=== PATIENT | male | born 1965 | race Caucasian/White ===

== ENCOUNTER → 2020-02-23 13:52 | Outpatient (REF) | payer OTHER, SELFPAY | LOC: HO.SL 13:52 | PROVIDERS: PCP Internal Medicine; Visit Provider Internal Medicine Pulmonary Disease | DX: G47.33 Obstructive sleep apnea (adult) (pediatric) (principal) | CPT/HCPCS: 95806 ==

== ENCOUNTER 2020-11-09 09:41 | Outpatient (REF) | payer OTHER, SELFPAY ==
[2020-11-09 10:47] LABS: Anion Gap 10 (12-20); Blood Urea Nitrogen 13 mg/dL (9-16); Calcium 9.2 mg/dL (8.4-10.2); Carbon Dioxide 29 mmol/L (22-29); Chloride 106 mmol/L (96-108); Estimated Glomerular Filt Rate > 60; Glucose Random 121 mg/dL (60-115); Potassium 4.3 mmol/L (3.3-5.1); Sodium 141 mmol/L (135-145)
== END 2020-11-09 09:42 | disposition home or self-care (01) ==
LOC: HO.10HDL 09:41
PROVIDERS: Visit Provider Internal Medicine
DX: I10 Essential (primary) hypertension (principal)
CPT/HCPCS: 36415; 80048

== ENCOUNTER 2021-02-21 09:57 | Outpatient (REF) | payer OTHER, SELFPAY ==
[2021-02-21 13:45] LABS: Anion Gap 12 (12-20); Blood Urea Nitrogen 13 mg/dL (9-16); Carbon Dioxide 29 mmol/L (22-29); Chloride 103 mmol/L (96-108); Estimated Glomerular Filt Rate > 60; Glucose Fasting 111 mg/dL (60-99); Potassium 4.2 mmol/L (3.3-5.1); Sodium 140 mmol/L (135-145)
== END 2021-02-21 09:58 | disposition home or self-care (01) ==
LOC: HO.10HDL 09:57
PROVIDERS: Visit Provider Internal Medicine
DX: I10 Essential (primary) hypertension (principal)
CPT/HCPCS: 36415; 80048

== ENCOUNTER → 2021-05-15 09:49 | Outpatient (BNVA) | payer OTHER, SELFPAY | PROVIDERS: PCP Internal Medicine; Referring Provider Internal Medicine; Visit Provider Surgery ==

== ENCOUNTER 2021-06-22 13:34 | Outpatient (REF) | payer OTHER, SELFPAY ==
[2021-06-22 13:56] VITALS: BMI 33.2
[2021-06-22 13:58] VITALS: BP 178/91; PULSE 78; RESP 16; TEMP 36.2; O2SAT 99
--- NOTE | 2021-06-22 14:30 | W.PM.OPN ---
Operative Note Operative Note Date of Service: 06/22/21 Narrative: Preop diagnosis: Epidermal inclusion cyst, right upper back Postop diagnosis: The same Procedure: Excision of epidermal inclusion cyst, right upper back under local anesthesia Surgeon: Rito Rose MD The patient is a 56-year-old male with an epidermal inclusion cyst on the right upper back measuring about 3 cm in diameter. He understood the technique of excision under local anesthesia. He was aware of the risks, benefits, and alternatives. He was brought to the operating room and placed in prone position. The area of the cyst was prepped and draped. Lidocaine 1% was used for local anesthesia. I made an incision on the skin overlying the cyst using blade 15. This was carried down through the full-thickness of the skin and subcutaneous fat. We continued to dissect through the subcutaneous fat with Metzenbaum scissors until I was able to visualize the cyst capsule. I sharply dissected the cyst capsule of the rest of subcutaneous layer using Metzenbaum scissors. There was note of some fibrotic changes around this would this was a little difficult. We continued to dissect circumferentially until this cyst was delivered and sent as specimen. Again the diameter was about 3 cm. I irrigated the area of excision. I closed the incision with full-thickness nylon 2-0 interrupted sutures. Dressings were applied. The procedure was then completed . The patient tolerated procedure well. There were no complication noted. Initial and final counts of sponges and instruments were correct. Estimated blood loss about 20 cc . The patient was given wound care instructions and will be seen in the office for follow-up of for removal of sutures.
== END 2021-06-22 13:35 | disposition home or self-care (01) ==
LOC: HO.MS 13:34
PROVIDERS: PCP Internal Medicine; Visit Provider Surgery
PROC: (CPT 11403; principal; 2021-06-22 14:00)
DX: L72.0 Epidermal cyst (principal); E78.5 Hyperlipidemia, unspecified; I10 Essential (primary) hypertension; Z79.899 Other long term (current) drug therapy; Z88.0 Allergy status to penicillin; Z88.1 Allergy status to other antibiotic agents
CPT/HCPCS: 11403; 88304

== ENCOUNTER → 2021-07-03 10:31 | Outpatient (BNVA) | payer OTHER, SELFPAY | PROVIDERS: PCP Internal Medicine; Referring Provider Internal Medicine; Visit Provider Surgery ==

== ENCOUNTER 2021-12-05 09:04 | Outpatient (REF) | payer OTHER, SELFPAY ==
[2021-12-05 10:42] LABS: MANUAL DIFF FLAG NO
[2021-12-05 10:49] LABS: Basophils Percent Auto 0.6 % (0-2); Eosinophils Absolute Auto 0.2 X10*3/uL (0.0-0.4); Hematocrit 47.9 % (42.0-52.0); Hemoglobin 16.3 g/dl (14.0-18.0); Imm Gran Abs Auto 0.01 X10*3/uL (0.00-0.03); Imm Gran Pct Auto 0.2 % (0.0-0.4); Lymphocytes Absolute Auto 0.8 X10*3/uL (1.2-4.9); Lymphocytes Percent Auto 17.2 % (20-40); Mean Corpuscular Hemoglobin 28.6 pg (27.0-33.0); Monocytes Absolute Auto 0.5 X10*3/uL (0.1-1.2); Monocytes Percent Auto 11.3 % (2-11); Neutrophils Absolute Auto 3.2 x10*3/uL (2.0-8.3); Neutrophils Percent Auto 66.7 % (45-73); Platelet Count 120 X10*3/uL (160-400); White Blood Count 4.8 X10*3/uL (4.8-10.8)
[2021-12-05 10:56] LABS: Estimated Average Glucose 111 mg/dL; Hemoglobin A1c % 5.5 %
[2021-12-05 10:57] LABS: Alanine Aminotransferase 16 U/L (0-40); Albumin Level 4.4 g/dL (3.5-5.0); Alkaline Phosphatase 78 U/L (39-117); Anion Gap 11 (12-20); Aspartate Amino Transferase 17 U/L (5-37); Bilirubin Total 0.9 mg/dL (0.0-1.0); Blood Urea Nitrogen 14 mg/dL (9-16); Calcium 9.3 mg/dL (8.4-10.2); Carbon Dioxide 30 mmol/L (22-29); Chloride 102 mmol/L (96-108); Cholesterol 229 mg/dL; Estimated Glomerular Filt Rate > 60; Glucose Fasting 125 mg/dL (60-99); HDL Cholesterol 52 mg/dL; LDL Cholesterol Calculated 144 mg/dl; Potassium 4.4 mmol/L (3.3-5.1); Sodium 139 mmol/L (135-145); Total Protein 7.1 g/dL (6.5-8.0); Triglycerides 165 mg/dL
[2021-12-05 11:20] LABS: Prostate Specific Antigen Scr 1.13 ng/mL (<0.05-4.0)
== END 2021-12-05 09:05 | disposition home or self-care (01) ==
LOC: HO.10HDL 09:04
PROVIDERS: Visit Provider Internal Medicine
DX: Z00.00 Encounter for general adult medical examination without abnormal findings (principal); Z12.5 Encounter for screening for malignant neoplasm of prostate; I10 Essential (primary) hypertension; E78.00 Pure hypercholesterolemia, unspecified; N40.0 Benign prostatic hyperplasia without lower urinary tract symptoms; R73.03 Prediabetes
CPT/HCPCS: 36415; 80053; 80061; 83036; 84153; 85025

== ENCOUNTER 2022-09-11 07:36 | Day surgery (SDC) | payer OTHER, SELFPAY ==
--- NOTE | 2022-09-10 13:27 | HO.ANESPROP2 ---
HPI - Anesthesia Eval Consult details Narrative: 57yo M for Upper Endoscopy and Colonoscopy PMFSH Active Problems Active Problems: All Active Problems (Updated 09/10/22 @ 12:26 by Shea Au RN) Epidermal cyst (Acute) Hyperlipidemia (Acute) Hypertension (Acute) Past Medical History Medical History Diverticulitis Epidermal cyst Esophageal reflux Hyperlipidemia Hypertension Nephrolithiasis LUIS ANGEL on CPAP Family History Family History Father Cardiovascular disease Surgical History Surgical History History of excision of epidermal inclusion cyst (~06/22/21) History of removal of cyst Hx of colonoscopy Hx of esophagogastroduodenoscopy Social History Social History Patient Tobacco Use Status: Former Tobacco user Substance Use Frequency: Occasionally Are you DNR?: No Advance Directives: No Advance Directives Information Provided: Yes Nutrition Risks: No Nutritional Risk Meds Allergies Allergy/AdvReac Type Severity Reaction Status Date / Time Penicillins [PENICILLINS] Allergy Intermediate RASH Verified 09/11/22 07:55 ciprofloxacin [From CIPRO] AdvReac Severe GI Verified 09/11/22 07:55 PAIN/DIARRHEA Home Medications Medication Instructions Recorded Confirmed Last Taken Type flu vacc [id number] 6mos up(PF) 60 ml IM 02/13/20 05/15/21 Unknown History mcg(15 mcgx4)/0.5 mL IM syringe valsartan 160 mg tablet 160 mg PO DAILY 02/13/20 09/11/22 09/11/22 History hydrochlorothiazide 12.5 mg tablet 12.5 mg PO DAILY 05/15/21 09/11/22 Unknown History omeprazole 20 mg capsule,delayed 20 mg PO DAILY 05/15/21 09/11/22 Unknown History release pravastatin 20 mg tablet 20 mg PO DAILY 05/15/21 09/11/22 Unknown History Exam Exam Date and Time: September 10, 2022 1327 Assessment and Plan Assessment Anesthesia Assessment: Chart Reviewed
[2022-09-11 07:42] VITALS: BMI 31.4
[2022-09-11] MEDS: Lactated Ringers 1,000 ML 100 ML IVCONT (07:58)
[2022-09-11 08:07] VITALS: BP 152/75; PULSE 62; RESP 18; TEMP 36.5; O2SAT 96
--- NOTE | 2022-09-11 08:49 | P.CONAN_ITS ---
[facility] Active Problems Active Problems: All Active Problems (Updated 09/10/22 @ 12:26 by Shea Au RN) Epidermal cyst (Acute) Hyperlipidemia (Acute) Hypertension (Acute) Past Medical History Medical History Diverticulitis Epidermal cyst Esophageal reflux Hyperlipidemia Hypertension Nephrolithiasis LUIS ANGEL on CPAP Functional capacity: independent ambulation Family History Family History Father Cardiovascular disease Surgical History Surgical History History of excision of epidermal inclusion cyst (~06/22/21) History of removal of cyst Hx of colonoscopy Hx of esophagogastroduodenoscopy History of Problems with Anesthesia: No Social History Social History Patient Tobacco Use Status: Former Tobacco user Substance Use Frequency: Occasionally Are you DNR?: No Advance Directives: No Advance Directives Information Provided: Yes Nutrition Risks: No Nutritional Risk Meds Allergies Allergy/AdvReac Type Severity Reaction Status Date / Time Penicillins [PENICILLINS] Allergy Intermediate RASH Verified 09/11/22 07:55 ciprofloxacin [From CIPRO] AdvReac Severe GI Verified 09/11/22 07:55 PAIN/DIARRHEA Active Medications: Current Medications Lactated Ringer's (Lr) 1,000 mls @ 100 mls/hr IVCONT .Q10H NESSA Last Admin: 09/11/22 07:58 Dose: 100 mls/hr Home Medications Medication Instructions Recorded Confirmed Last Taken Type flu vacc [id number] 6mos up(PF) 60 ml IM 02/13/20 05/15/21 Unknown History mcg(15 mcgx4)/0.5 mL IM syringe valsartan 160 mg tablet 160 mg PO DAILY 02/13/20 09/11/22 09/11/22 History hydrochlorothiazide 12.5 mg tablet 12.5 mg PO DAILY 05/15/21 09/11/22 Unknown History omeprazole 20 mg capsule,delayed 20 mg PO DAILY 05/15/21 09/11/22 Unknown History release pravastatin 20 mg tablet 20 mg PO DAILY 05/15/21 09/11/22 Unknown History Exam Exam Date and Time: September 11, 2022 0849 Height,Weight and Vital Signs: Height 5 ft 9 in Weight 96.615 kg Last Vital Signs Temp 97.7 F 09/11/22 08:07 Pulse 62 09/11/22 08:07 Resp 18 09/11/22 08:07 BP 152/75 H 09/11/22 08:07 Pulse Ox 96 09/11/22 08:07 O2 Del Method Room Air 09/11/22 08:07 Airway Mallampati Class: III TM Dist: >3cm Neck ROM: Full Heart: RRR Lungs: CTA Assessment and Plan Final Anesthetic Review History of Problems with Anesthesia: No NPO: Yes ASA Class: III Final Preanesthetic Review: Meds/Allgs Chart Reviewed, Consent Obtained/Reviewed and Anes Risks/Benef Reviewed Patient Risk: Intermediate Procedure Risk: Low Anesthetic Plan Anesthetic Plan: MAC: Disposition: Standard PACU
--- NOTE | 2022-09-11 09:04 | MHC.SHP ---
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 Details of Present Illness: see H&P no changes Relevant Family History (Specify if Yes): No Relevant Social History: None Present Medications: see Short Stay Collaborative assessment Medical History: No relevant PMH Allergies: Allergies Allergy/AdvReac Type Severity Reaction Status Date / Time Penicillins [PENICILLINS] Allergy Intermediate RASH Verified 09/11/22 07:55 ciprofloxacin [From CIPRO] AdvReac Severe GI Verified 09/11/22 07:55 PAIN/DIARRHEA Review of Systems Sugical H&P ROS: Negative: Constitution, Cardiovascular, Respiratory, Neurological, Psychiatric, Hem-Onc, Allergic/Immunologic, Gastrointestinal, Genitourinary, Musculoskeletal, Integumentary, Endocrine and Eyes/Ears/Nose/Throat Exam Surgical H&P Exam: Normal: HEENT, Normal: Heart, Normal: Lungs, Normal: Extremities, Normal: Abdomen, Normal: Skin and Normal: Neurological Plan Diagnosis/Plan: Unchanged I have reviewed the history and physical and performed a pertinent physical examination on my patient. No changes have occurred unless specified. Time Spent With Patient Time: Total time managing care of this patient today ____ minutes.
--- NOTE | 2022-09-11 09:58 | P.BOP_ITS ---
Brief Operative Note Date of Service: 09/11/22 Pre-op diagnosis: barretts screening Post-op diagnosis: same Procedure: egd colonoscopy Surgeon: Brent Callahan Anesthesia: MAC Was an Disability Insurance Hearing Officer used for this Procedure?: No Estimated blood loss (mL): 5 Pathology: other Condition: stable Disposition: PACU
[2022-09-11 10:02] VITALS: BP 114/50; PULSE 95; RESP 16; TEMP 36.8; O2SAT 99
[2022-09-11 10:17] VITALS: BP 114/50; PULSE 62; RESP 16; TEMP 36.8; O2SAT 96
--- NOTE | 2022-09-11 10:34 | HO.POSTANES ---
Post Anesthesia Evaluation Post Anesthesia Evaluation Vital Signs: Vital Signs Temp Pulse Resp BP Pulse Ox O2 Del Method 09/11/22 10:17 98.3 F 62 16 114/50 L 96 Room Air 09/11/22 10:02 98.3 F 95 16 114/50 L 99 Room Air 09/11/22 08:07 97.7 F 62 18 152/75 H 96 Room Air Anesthesia: Monitored Mental Status: Awake Pain Control: Satisfactory Nausea/Vomiting: None Hydration: Adequate Anesthesia-Related Issues: No Anes. Related Issues
--- NOTE | 2022-09-11 10:38 | OP_ITS ---
DATE OF SERVICE: 09/11/2022 SURGEON: Brent Callahan MD INDICATIONS: 1. Feliciano esophagus. 2. Colon cancer screening. PREOPERATIVE DIAGNOSIS: POSTOPERATIVE DIAGNOSIS: PROCEDURE PERFORMED: Upper endoscopy with biopsy, colonoscopy to the terminal ileum with biopsy. ESTIMATED BLOOD LOSS: COMPLICATIONS: ANESTHESIA: Monitored anesthesia care. ASSISTANTS: SPECIMENS: DESCRIPTION OF PROCEDURE: The history and physical was performed. The risks and benefits of the procedure were explained to the patient. Informed consent was obtained. The patient was placed in the left lateral decubitus position. The Olympus video gastroscope was introduced into the esophagus, stomach, and duodenum. Examination was performed. The scope was removed. He was repositioned for colonoscopy. A digital rectal exam was performed and was found to be normal. The Olympus pediatric video colonoscope was introduced into the rectum and advanced to the cecum without difficulty. The cecum was identified by transillumination, palpation, and identification of the ileocecal valve. Examination was performed. The scope was removed. He tolerated both procedures well and was returned to the recovery area in stable condition. FINDINGS: Upper endoscopy: 1. Esophagus: The esophagus showed changes of Feliciano esophagus extending from the EG junction at 36 cm to about 34 cm with a single tongue of salmon-colored mucosa. Biopsies were obtained from the EG junction and at 34 cm. There were no raised lesions or ulcerated areas. 2. Stomach: The stomach showed no evidence of masses or ulcers. In the cardia, there was an erythematous raised area consistent with focal gastritis and a possible inflamed hyperplastic or fundic gland polyp. Biopsies were obtained from the mucosa. The area of inflammation measured approximately 10 x 10 mm. 3. Duodenum: The bulb and 2nd portion were normal. Colonoscopy: The terminal ileum was normal. The visualized colonic mucosa was within normal limits. Two polyps were identified and removed with biopsy forceps. The first was located in the cecum. A 2nd was located in the rectum. Both measured less than 5 mm. There was mild sigmoid diverticulosis. There was some stool coating mucosa, which was washed and suctioned. Overall, the examination was considered adequate. Retroflexed examination showed some small internal hemorrhoids. IMPRESSION: 1. Feliciano esophagus. 2. Colon polyps. RECOMMENDATION: Follow up the biopsy results. MD JORGE LUIS Mccormick/SELINL / [phone]
== END 2022-09-11 10:33 | disposition home or self-care (01) ==
PROVIDERS: PCP Internal Medicine; Visit Provider Internal Medicine Gastroenterology
PROC: (CPT 45380; principal; 2022-09-11 09:00)
DX: Z12.11 Encounter for screening for malignant neoplasm of colon (principal); Z86.010 Personal history of colon polyps; K63.5 Polyp of colon; K62.1 Rectal polyp; K57.30 Diverticulosis of large intestine without perforation or abscess without bleeding; K64.8 Other hemorrhoids; Z87.19 Personal history of other diseases of the digestive system; K22.70 Barrett's esophagus without dysplasia; K29.50 Unspecified chronic gastritis without bleeding; K21.9 Gastro-esophageal reflux disease without esophagitis; I10 Essential (primary) hypertension; E78.00 Pure hypercholesterolemia, unspecified; N20.0 Calculus of kidney; G47.33 Obstructive sleep apnea (adult) (pediatric); Z99.89 Dependence on other enabling machines and devices; Z79.899 Other long term (current) drug therapy; Z79.51 Long term (current) use of inhaled steroids; Z88.0 Allergy status to penicillin; Z88.1 Allergy status to other antibiotic agents; Z87.891 Personal history of nicotine dependence
CPT/HCPCS: 45380; 43239; 88305; 88342

== ENCOUNTER 2023-02-12 09:18 | Outpatient (REF) | payer OTHER, SELFPAY ==
[2023-02-12 09:38] LABS: MANUAL DIFF FLAG NO
[2023-02-12 10:42] LABS: Basophils Percent Auto 0.6 % (0-2); Eosinophils Absolute Auto 0.1 X10*3/uL (0.0-0.4); Eosinophils Percent Auto 2.7 % (0-4); Hemoglobin 16.5 g/dl (14.0-18.0); Imm Gran Abs Auto 0.01 X10*3/uL (0.00-0.03); Imm Gran Pct Auto 0.2 % (0.0-0.4); Lymphocytes Percent Auto 18.7 % (20-40); Mean Corpuscular HGB Conc 34.4 g/dl (31.0-36.0); Mean Corpuscular Hemoglobin 29.5 pg (27.0-33.0); Mean Corpuscular Volume 85.7 fL (80.0-98.0); Mean Platelet Volume 12.8 fL (9.4-12.4); Monocytes Absolute Auto 0.6 X10*3/uL (0.1-1.2); Monocytes Percent Auto 11.4 % (2-11); Neutrophils Absolute Auto 3.5 x10*3/uL (2.0-8.3); Neutrophils Percent Auto 66.4 % (45-73); Platelet Count 120 X10*3/uL (160-400); Red Cell Distribution Width 12.8 % (11.0-16.0); White Blood Count 5.3 X10*3/uL (4.8-10.8)
[2023-02-12 10:52] LABS: Estimated Average Glucose 108 mg/dL; Hemoglobin A1c % 5.4 % (<6.0)
[2023-02-12 10:59] LABS: Creatinine Urine 169.15 mg/dL; Microalbum/Creatinine Ratio Ur 6.5 ug/mg cr (<30)
[2023-02-12 11:09] LABS: Alanine Aminotransferase 15 U/L (0-40); Albumin Level 4.2 g/dL (3.5-5.0); Alkaline Phosphatase 66 U/L (39-117); Anion Gap 16 (12-20); Aspartate Amino Transferase 15 U/L (5-37); Bilirubin Total 0.9 mg/dL (0.0-1.0); Blood Urea Nitrogen 15 mg/dL (9-16); Calcium 9.4 mg/dL (8.4-10.2); Carbon Dioxide 26 mmol/L (22-29); Chloride 101 mmol/L (96-108); Cholesterol 210 mg/dL (<200); Estimated Glomerular Filt Rate > 60; Glucose Fasting 119 mg/dL (60-99); HDL Cholesterol 45 mg/dL (>40); LDL Cholesterol Calculated 137 mg/dL (<100); Sodium 139 mmol/L (135-145); Total Protein 7.1 g/dL (6.5-8.0); Triglycerides 140 mg/dL (<150)
[2023-02-12 11:21] LABS: Prostate Specific Antigen Scr 1.64 ng/mL (<0.05-4.0)
== END 2023-02-12 09:19 | disposition home or self-care (01) ==
LOC: HO.LAB 09:18
PROVIDERS: PCP Internal Medicine; Visit Provider Internal Medicine
DX: Z00.00 Encounter for general adult medical examination without abnormal findings (principal); Z12.5 Encounter for screening for malignant neoplasm of prostate; I10 Essential (primary) hypertension; R73.03 Prediabetes
CPT/HCPCS: 36415; 80053; 80061; 82043; 82570; 83036; 84153; 85025

== ENCOUNTER 2023-04-02 07:41 | Outpatient (REF) | payer OTHER, SELFPAY ==
--- NOTE | ~2023-04-02 | XR_ITS ---
EXAMINATION: XR SHOULDER, LEFT CLINICAL INFORMATION: Left shoulder pain. COMPARISON: None available. TECHNIQUE: 2 view of the left shoulder. FINDINGS: There are mild degenerative changes seen at the acromioclavicular joint. No fracture. Glenohumeral and acromioclavicular alignment is anatomic with normal glenohumeral joint space. No abnormal soft tissue calcifications. XR/XR shoulder LT min 2V IMPRESSION: Mild degenerative changes at the acromioclavicular joint.
== END 2023-04-02 07:42 | disposition home or self-care (01) ==
LOC: HO.HOSX 07:41
PROVIDERS: Visit Provider Orthopaedic Surgery
DX: M25.512 Pain in left shoulder (principal); Z79.899 Other long term (current) drug therapy
CPT/HCPCS: 73030

== ENCOUNTER 2023-04-02 08:51 | Outpatient (AMB) | payer OTHER, SELFPAY ==
--- NOTE | 2023-04-02 08:53 | MHC.OFFVIS ---
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 Patient reports left shoulder pain has been present for quite some time that may haven been from an old baseball injury. He was seen by his PCP who ordered an MRI and a referral to orthopedics. The patient describes his pain as sharp and severe in nature. Has done physical therapy for 12 weeks over the last 6 months which aggravated his pain. He has also had injections in the past which gave him minimal relief. He has tried Tylenol and anti-inflammatory medicines which gave him mild relief. Patient has pain when trying to play golf or lift overhead. He denies any weakness. Allergies Penicillins [PENICILLINS] Allergy (Intermediate, Verified 04/02/23 09:04) RASH ciprofloxacin [From CIPRO] Adverse Reaction (Severe, Verified 04/02/23 09:04) GI PAIN/DIARRHEA Medication List - Last Reconciled 04/02/23 by Boo Arndt MD flu vacc [id number] 6mos up(PF) mL IM fluticasone propionate 50 mcg/actuation 1 spray intranasal BID hydrochlorothiazide 12.5 mg PO DAILY omeprazole 20 mg PO DAILY pravastatin 20 mg PO DAILY valsartan 160 mg PO DAILY PFSH Medical History Diverticulitis Epidermal cyst Esophageal reflux Hyperlipidemia Hypertension Nephrolithiasis LUIS ANGEL on CPAP Surgical History Hx of esophagogastroduodenoscopy Hx of colonoscopy History of excision of epidermal inclusion cyst (~06/22/21) History of removal of cyst Family History Father Cardiovascular disease Social History (Updated 04/02/23 @ 09:05 by DORA Pratt) Patient Tobacco Use Status: Former Tobacco user Current occupation: self employed, right hand dominant Physical Exam Vital Signs: BMI result Body Mass Index 32.9 Const Other: Well-nourished well-developed very friendly male awake alert and oriented x3 in no acute distress Extrem Other: Bilateral upper extremity examination shows good capillary refill, no skin lesions noted, normal sensation light touch Left shoulder examination shows decreased range of motion when compared to his right shoulder, 5/5 strength with supraspinatus testing, positive impingement signs, tenderness over his acromioclavicular joint, no instability Results Reviewed Results Reviewed: MRI of the patient's left shoulder show severe acromioclavicular joint narrowing, signal change within the distal clavicle most likely due to distal clavicle osteolysis, a type 2 acromion, signal change within the supraspinatus tendon most likely due to rotator cuff tendinosis Assessment & Plan Assessment & Plan (1) Left shoulder pain: Code(s): M25.512 - Pain in left shoulder Plan: Mr. Matthews presents with progressively worsening left shoulder pain and stiffness due to impingement syndrome, acromioclavicular joint arthritis and issues of capsulitis. I had a lengthy discussion with the patient regarding the treatment options. At this point has failed continued non operative treatments. The risks and benefits of left shoulder surgery were discussed at length with the patient. The patient wishes to proceed. Surgery will most likely involve left shoulder diagnostic arthroscopy with distal clavicle excision, acromioplasty, anterior capsular release and manipulation under anesthesia. The patient will contact my office to pick a surgery date. He will follow-up as instructed. Feel free to call me at any time should questions regarding his orthopedic management arise. Her much for asking me to see this very friendly gentleman. I spent 22 minutes in reviewing the patient's records and imaging studies, seeing the patient and documenting in the medical record. Orders: Orders XR shoulder LT min 2V Today M25.512 - Pain in left shoulder Coding Level of Care Code New Pt Level 2 (87892) Diagnoses Left shoulder pain M25.512
[2023-04-02 08:54] VITALS: BMI 32.9
== END 2023-04-02 09:44 | disposition home or self-care (01) ==
PROVIDERS: PCP Internal Medicine; Visit Provider Orthopaedic Surgery
DX: M25.512 Pain in left shoulder (principal)
CPT/HCPCS: 99202

== ENCOUNTER 2023-05-16 08:53 | Outpatient (AMB) | payer OTHER, SELFPAY ==
[2023-05-16 08:39] VITALS: BMI 32.9
--- NOTE | 2023-05-16 08:39 | A.OFFVIS_ITS ---
Intake Vital Signs 05/16/23 08:39 Height 5 ft 9 in Weight 223 lb BMI 32.9 Handedness Right Intake Visit Reasons: Pre-Lt Shld Intake Note: Altaf is a 58 year old right hand dominant male who presents today for a pre op appointment of his left shoulder 05/31/23 DRRhiannon Altaf a 58 year old male presents with complaints of left shoulder pain. Patient reports left shoulder pain has been present for quite some time that may haven been from an old baseball injury. He was seen by his PCP who ordered an MRI and a referral to orthopedics. The patient describes his pain as sharp and severe in nature. Has done physical therapy for 12 weeks over the last 6 months which aggravated his pain. He has also had injections in the past which gave him minimal relief. He has tried Tylenol and anti-inflammatory medicines which gave him mild relief. Patient has pain when trying to play golf or lift overhead. He denies any weakness. Allergies Penicillins [PENICILLINS] Allergy (Intermediate, Verified 04/02/23 09:04) RASH ciprofloxacin [From CIPRO] Adverse Reaction (Severe, Verified 04/02/23 09:04) GI PAIN/DIARRHEA Medication List - Last Reconciled 05/16/23 by Boo Arndt MD flu vacc [id number] 6mos up(PF) mL IM fluticasone propionate 50 mcg/actuation 1 spray intranasal BID hydrochlorothiazide 12.5 mg PO DAILY omeprazole 20 mg PO DAILY oxycodone 10 mg (2 x 5 mg) PO Q4H PRN pravastatin 20 mg PO DAILY valsartan 160 mg PO DAILY PFSH Medical History Nephrolithiasis LUIS ANGEL on CPAP Esophageal reflux Diverticulitis Epidermal cyst Hyperlipidemia Hypertension Surgical History Hx of esophagogastroduodenoscopy Hx of colonoscopy History of excision of epidermal inclusion cyst (~06/22/21) History of removal of cyst Family History Father Cardiovascular disease Social History Patient Tobacco Use Status: Former Tobacco user Current occupation: self employed, right hand dominant Physical Exam Vital Signs: BMI result Body Mass Index 32.9 Const Other: Well-nourished well-developed very friendly male awake alert and oriented x3 in no acute distress Lungs - clear to auscultation bilaterally with symmetric expansion Cardiovascular exam - regular rate and rhythm Abdominal exam - soft nontender nondistended Extrem Other: Bilateral upper extremity examination shows good capillary refill, no skin lesions noted, normal sensation light touch Left shoulder examination shows decreased range of motion when compared to his right shoulder, pain with range of motion, 4+ out of 5 strength with supraspinatus testing, positive impingement signs, tenderness over his acromioclavicular joint, no instability Results Reviewed Results Reviewed: MRI of the patient's left shoulder show severe acromioclavicular joint narrowing, signal change within the distal clavicle 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 Matthews presents with progressively worsening left shoulder pain and stiffness due to impingement syndrome, acromioclavicular joint arthritis and issues of capsulitis. I had a lengthy discussion with the patient regarding the treatment options. At this point has failed continued non operative treatments. The risks and benefits of left shoulder surgery were discussed at length with the patient. The patient wishes to proceed. Surgery will most likely involve left shoulder diagnostic arthroscopy with distal clavicle excision, acrom ioplasty, anterior capsular release and manipulation under anesthesia. The patient was given a prescription for oxycodone at his preoperative appointment. He will follow-up as instructed. Feel free to call me at any time should questions regarding his orthopedic management arise. I spent 22 minutes in reviewing the patient's records and imaging studies, seeing the patient and documenting in the medical record. Medications: New oxycodone Partial Fill upon patient request. 10 mg (2 x 5 mg) PO Q4H PRN 40 tabs 0RF pain Coding Level of Care Code Est Pt Level 2 (10102) Diagnoses Impingement syndrome of left shoulder M75.42
== END 2023-05-16 09:14 | disposition home or self-care (01) ==
PROVIDERS: PCP Internal Medicine; Visit Provider Orthopaedic Surgery
DX: M75.42 Impingement syndrome of left shoulder (principal)
CPT/HCPCS: 99024

== ENCOUNTER → 2023-05-16 08:53 | Outpatient (BNVA) | payer OTHER, SELFPAY | PROVIDERS: PCP Internal Medicine; Visit Provider Orthopaedic Surgery ==

== ENCOUNTER 2023-05-31 09:30 | Day surgery (SDC) | payer OTHER, SELFPAY ==
[2023-05-27 15:55] VITALS: BMI 32.9
--- NOTE | 2023-05-29 12:22 | P.CONAN_ITS ---
HPI - Anesthesia Eval Consult details Narrative: 58yo M for Left Shoulder Arthroscopy,distal clavical excision,acromialplasty, Capsular Release and manipulation PMFSH Active Problems Active Problems: All Active Problems (Updated 05/16/23 @ 09:29 by Boo Arndt MD) Impingement syndrome of left shoulder (Acute) Left shoulder pain (Acute) Epidermal cyst (Acute) Hyperlipidemia (Acute) Hypertension (Acute) Past Medical History Medical History (Updated 05/16/23 @ 09:29 by Boo Arndt MD) Nephrolithiasis LUIS ANGEL on CPAP Esophageal reflux Diverticulitis Epidermal cyst Hyperlipidemia Hypertension Family History Family History Father Cardiovascular disease Surgical History Surgical History (Updated 05/27/23 @ 15:47 by Genna Vasquez RN) Hx of esophagogastroduodenoscopy Hx of colonoscopy History of excision of epidermal inclusion cyst (~06/22/21) History of removal of cyst History of Problems with Anesthesia: No Social History Social History Are you a primary career development specialist to a significant other at home: No Do you presently have visiting nurse or other home services: No Patient Tobacco Use Status: Never used Tobacco Use of substances other than those prescribed or required for medical reasons: Yes Have you been hit, kicked, punched, or otherwise hurt by someone within the past year? If so, by whom?: No Are you DNR?: No Advance Directives: No ( is primary contact) Advance Directives Information Provided: Yes (as above noted-brochure mailed) Advance Directives on File: No Recently lost weight without trying: No Eating poorly because of decreased appetite: No Nutrition Risks: No Nutritional Risk Poor oral hygiene: No Current occupation: self employed, right hand dominant Meds Allergies Allergy/AdvReac Type Severity Reaction Status Date / Time Penicillins [PENICILLINS] Allergy Intermediate RASH Verified 04/02/23 09:04 ciprofloxacin [From CIPRO] AdvReac Severe GI Verified 04/02/23 09:04 PAIN/DIARRHEA Active Medications: Current Medications Clindamycin Phosphate (Cleocin) 900 mg in 50 mls @ 50 mls/hr IV PREOP ONE Stop: 05/31/23 07:31 Home Medications Medication Instructions Recorded Confirmed Last Taken Type flu vacc [id number] 6mos up(PF) 60 ml IM 02/13/20 05/16/23 Unknown History mcg(15 mcgx4)/0.5 mL IM syringe valsartan 160 mg tablet 160 mg PO DAILY 02/13/20 05/27/23 09/11/22 History hydrochlorothiazide 12.5 mg tablet 12.5 mg PO DAILY 05/15/21 05/27/23 Unknown History omeprazole 20 mg capsule,delayed 20 mg PO DAILY 05/15/21 05/27/23 Unknown History release pravastatin 20 mg tablet 20 mg PO DAILY 05/15/21 05/27/23 Unknown History Exam Height,Weight and Vital Signs: Height 5 ft 9 in Weight 101.151 kg Pertinent Lab Results Pertinent Lab Results: Laboratory Tests 02/12/23 09:37 WBC 5.3 Hgb 16.5 Hct 48.0 Plt Count 120 L Sodium 139 Potassium 4.0 Chloride 101 Carbon Dioxide 26 BUN 15 Creatinine 0.95 Assessment and Plan Assessment Anesthesia Assessment: Chart Reviewed Final Anesthetic Review History of Problems with Anesthesia: No
[2023-05-31] VITALS (7 sets, daily range): BP systolic 114–170; BP diastolic 61–85; PULSE 52–58; RESP 16; TEMP 36.1–36.3; O2SAT 94–98; BMI 33.0
--- NOTE | 2023-05-31 09:49 | ECG_ITS ---
Test Reason : martha htn Blood Pressure : / mmHG Vent. Rate : 057 BPM Atrial Rate : 057 BPM P-R Int : 180 ms QRS Dur : 092 ms QT Int : 414 ms P-R-T Axes : 031 041 025 degrees QTc Int : 402 ms Sinus bradycardia Otherwise normal ECG No previous ECGs available Referred By: Celina Parks Electronically Signed By:CHUCKIE RIVERA MD
--- NOTE | 2023-05-31 10:18 | HO.ANESPROP2 ---
[facility] Active Problems Active Problems: All Active Problems (Updated 05/16/23 @ 09:29 by Boo Arndt MD) Impingement syndrome of left shoulder (Acute) Left shoulder pain (Acute) Epidermal cyst (Acute) Hyperlipidemia (Acute) Hypertension (Acute) Past Medical History Medical History (Updated 05/16/23 @ 09:29 by Boo Arndt MD) Nephrolithiasis LUIS ANGEL on CPAP Esophageal reflux Diverticulitis Epidermal cyst Hyperlipidemia Hypertension Family History Family History Father Cardiovascular disease Family history of problems with anesthesia: No Surgical History Surgical History (Updated 05/27/23 @ 15:47 by Genna Vasquez RN) Hx of esophagogastroduodenoscopy Hx of colonoscopy History of excision of epidermal inclusion cyst (~06/22/21) History of removal of cyst History of Problems with Anesthesia: No Social History Social History Are you a primary rn progressive care to a significant other at home: No Do you presently have visiting nurse or other home services: No Patient Tobacco Use Status: Never used Tobacco Use of substances other than those prescribed or required for medical reasons: Yes Have you been hit, kicked, punched, or otherwise hurt by someone within the past year? If so, by whom?: No Are you DNR?: No Advance Directives: No Advance Directives Information Provided: Yes Advance Directives on File: No Recently lost weight without trying: No Eating poorly because of decreased appetite: No Nutrition Risks: No Nutritional Risk Poor oral hygiene: No Current occupation: self employed, right hand dominant Meds Allergies Allergy/AdvReac Type Severity Reaction Status Date / Time Penicillins [PENICILLINS] Allergy Intermediate RASH Verified 04/02/23 09:04 ciprofloxacin [From CIPRO] AdvReac Severe GI Verified 04/02/23 09:04 PAIN/DIARRHEA Active Medications: Current Medications Lactated Ringer's (Lr) 1,000 mls @ 100 mls/hr IVCONT .Q10H [facility] Home Medications Medication Instructions Recorded Confirmed Last Taken Type flu vacc [id number] 6mos up(PF) 60 ml IM 02/13/20 05/16/23 Unknown History mcg(15 mcgx4)/0.5 mL IM syringe valsartan 160 mg tablet 160 mg PO DAILY 02/13/20 05/27/23 09/11/22 History hydrochlorothiazide 12.5 mg tablet 12.5 mg PO DAILY 05/15/21 05/27/23 Unknown History omeprazole 20 mg capsule,delayed 20 mg PO DAILY 05/15/21 05/27/23 Unknown History release pravastatin 20 mg tablet 20 mg PO DAILY 05/15/21 05/27/23 Unknown History Exam Height,Weight and Vital Signs: Height 5 ft 9 in Weight 101.264 kg Last Vital Signs Temp 97.4 F 05/31/23 10:11 Pulse 58 05/31/23 10:11 Resp 16 05/31/23 10:11 BP 170/85 H 05/31/23 10:11 Pulse Ox 95 05/31/23 10:11 O2 Del Method Room Air 05/31/23 10:11 Airway Mallampati Class: III TM Dist: >3cm Neck ROM: Full Assessment and Plan Assessment Anesthesia Assessment: Anesthesia Plan Discussed and Chart Reviewed Final Anesthetic Review Family History of Problems with Anesthesia: No History of Problems with Anesthesia: No NPO: Yes ASA Class: III Final Preanesthetic Review: No Changes in Pt Med Stat, Meds/Allgs Chart Reviewed, Consent Obtained/Reviewed and Anes Risks/Benef Reviewed Patient Risk: Intermediate Procedure Risk: Intermediate Anesthetic Plan Anesthetic Plan: GA and Regional Block Disposition: Standard PACU
[2023-05-31] MEDS: Lactated Ringers 1,000 ML 100 ML IVCONT (10:29)
--- NOTE | 2023-05-31 13:23 | P.BOP_ITS ---
Brief Operative Note Date of Service: 05/31/23 Pre-op diagnosis: Left shoulder impingement syndrome, left shoulder acromioclavicular joint arthritis, left shoulder adhesive capsulitis Post-op diagnosis: same Procedure: Left shoulder diagnostic arthroscopy with left shoulder arthroscopic distal clavicle excision, left shoulder arthroscopic acromioplasty, left shoulder arthroscopic anterior capsular release, left shoulder manipulation under anesthesia Implants: none Surgeon: Boo Arndt MD Anesthesia: GLMA and regional Was an Roll Dough Divider used for this Procedure?: No Estimated blood loss (mL): 15 Pathology: none sent Condition: stable Disposition: PACU
--- NOTE | 2023-05-31 13:24 | W.PM.OPN ---
Operative Note Operative Note Date of Service: 05/31/23 Narrative: After the patient was identified as Altaf Matthews and his left shoulder was initialed by myself the patient was brought to the holding area where a left shoulder interscalene regional block was performed by the anesthesiologist in routine fashion. The patient was then brought to the operating room where general anesthesia was induced by the anesthesiologist in routine fashion. Because of the patient's allergy to penicillins he was given 900 mg of IV clindamycin preoperatively for infection prophylaxis. Examination under anesthesia of the patient's left shoulder showed decreased range of motion when compared to the right shoulder. The patient's left shoulder had forward flexion to 140 degrees compared to 170 degrees, external rotation to 30 degrees compared to 60 degrees, and internal rotation to 40 degrees compared to 50 degrees. The patient was gently positioned in the beach chair position with all bony prominences well padded. The patient's left shoulder region and upper extremity were prepped and draped in sterile fashion. A formal time-out was completed. A #11 scalpel blade was used to make a posterior portal 2 cm inferior and 1 cm medial to the posterolateral corner of the acromion. Blunt trocar technique was used to enter the glenohumeral joint in routine fashion. An anterior portal was made just lateral to the coracoid process after proper positioning was confirmed using a spinal needle. Diagnostic arthroscopy showed minimal degenerative changes of the glenoid and humeral head articular surfaces. There was no evidence of rotator cuff tearing. There was no evidence of injury to the biceps tendon or its insertion onto the glenoid. There was inflammation of the anterior joint capsule consistent with adhesive capsulitis. The ArthroCare Wand was then used to perform an anterior capsular release between the inferior border of the biceps tendon and the superior border of the subscapularis tendon. The arthroscope was then placed from the posterior portal into the subacromial space. A lateral portal was made 2 fingerbreadths lateral to the anterior lateral corner of the acromion. The ArthroCare Wand was used to ablate soft tissues along the undersurface of the acromion as well as to excise the coracoacromial ligament. There was a sharp spur along the undersurface of the acromion which was removed using the hooded bur. The arthroscope was then placed into the lateral portal and the acromioplasty was completed with the bur in the posterior portal using the posterior aspect of the acromion as a cutting block. The ArthroCare Wand was then brought in through the anterior portal and was used to ablate soft tissues along the acromioclavicular joint and distal clavicle. The posterior and superior ligamentous structures were left intact. A distal clavicle excision of 8 mm was performed using the hooded bur. Any remaining bursal tissue was removed using the arthroscopic shaver. The subacromial space was irrigated and then drained. All arthroscopic instruments were removed. A gentle manipulation under anesthesia was then performed. Full passive range of motion was easily obtained. The 3 portals were closed with 3-0 nylon interrupted suture. The subacromial space was injected with Marcaine. Dry sterile dressing was placed over all incisions. The patient's left upper extremity was placed into a sling. The patient was awoken and extubated in the operating room. The patient was transferred to the recovery room in stable condition.
== END 2023-05-31 14:50 | disposition home or self-care (01) ==
PROVIDERS: PCP Internal Medicine; Visit Provider Orthopaedic Surgery
PROC: (CPT 29805; principal; 2023-05-31 11:00)
DX: M75.42 Impingement syndrome of left shoulder (principal); M19.012 Primary osteoarthritis, left shoulder; M75.02 Adhesive capsulitis of left shoulder; I10 Essential (primary) hypertension; E78.5 Hyperlipidemia, unspecified; G47.33 Obstructive sleep apnea (adult) (pediatric); Z79.51 Long term (current) use of inhaled steroids; Z79.899 Other long term (current) drug therapy; Z88.0 Allergy status to penicillin; Z88.1 Allergy status to other antibiotic agents; Z99.89 Dependence on other enabling machines and devices
CPT/HCPCS: 29824; 29825; 29826; 93005; J0171; J0665; J0736; J1100; J2250; J2405; J2704; J2795

== ENCOUNTER → 2023-05-31 09:30 | Outpatient (BNV) | payer OTHER, SELFPAY | PROVIDERS: PCP Internal Medicine; Visit Provider Orthopaedic Surgery | DX: M19.012 Primary osteoarthritis, left shoulder (principal); M75.42 Impingement syndrome of left shoulder; M75.02 Adhesive capsulitis of left shoulder | CPT/HCPCS: 29824; 29826 ==

== ENCOUNTER → 2023-05-31 09:49 | Outpatient (BNV) | payer OTHER, SELFPAY | PROVIDERS: PCP Internal Medicine; Visit Provider Internal Medicine Cardiovascular Disease | DX: R00.1 Bradycardia, unspecified (principal) | CPT/HCPCS: 93010 ==

== ENCOUNTER 2023-06-13 09:26 | Outpatient (AMB) | payer OTHER, SELFPAY ==
--- NOTE | 2023-06-13 09:27 | A.OFFVIS_ITS ---
Intake Intake Visit Reasons: PO-Lt Shld 05/31/23 Intake Note: Altaf a 58 year old male presents today for a post operative left shoulder on 05/31/23. Patient reports he is doing well, states having some tightness and soreness. Allergies Penicillins [PENICILLINS] Allergy (Intermediate, Verified 06/13/23 09:35) RASH ciprofloxacin [From CIPRO] Adverse Reaction (Severe, Verified 06/13/23 09:35) GI PAIN/DIARRHEA HPI PO-Lt Shld 05/31/23 HPI Details 58-year-old male who returns to the [facility] today for post-op left shoulder , 05/31/[address] Arndt. He continues to have mild tightness and soreness in his shoulder and is doing well otherwise. He has not had physical therapy in the past. He takes ibuprofen and occasional Advil for his pain. He has no other concerns today. [facility] Medical History (Updated 05/16/23 @ 09:29 by Boo Arndt MD) Nephrolithiasis LUIS ANGEL on CPAP Esophageal reflux Diverticulitis Epidermal cyst Hyperlipidemia Hypertension Surgical History Hx of esophagogastroduodenoscopy Hx of colonoscopy History of excision of epidermal inclusion cyst (~06/22/21) History of removal of cyst Family History Father Cardiovascular disease Social History Are you a primary manager medicare marketing to a significant other at home: No Do you presently have visiting nurse or other home services: No Patient Tobacco Use Status: Never used Tobacco Current occupation: self employed, right hand dominant Review of Systems Const All systems reviewed & are unremarkable except as noted in HPI and below Physical Exam Extrem Other: Left shoulder; Incision clean, dry and intact. No erythema or drainage. NVI. Results Reviewed Results Reviewed: Brief Operative Note Date of Service: 05/31/23 Pre-op diagnosis: Left shoulder impingement syndrome, left shoulder acromioclavicular joint arthritis, left shoulder adhesive capsulitis Post-op diagnosis: same Procedure: Left shoulder diagnostic arthroscopy with left shoulder arthroscopic distal clavicle excision, left shoulder arthroscopic acromioplasty, left shoulder arthroscopic anterior capsular release, left shoulder manipulation under anesthesia Implants: none Surgeon: Boo Arndt MD Assessment & Plan Assessment & Plan (1) Impingement syndrome of left shoulder: Code(s): M75.42 - Impingement syndrome of left shoulder (2) History of arthroscopy of left shoulder: Code(s): Z98.890 - Other specified postprocedural states Plan Sutures removed today, steri strips applied. He will begin a course of physical therapy to work on ROM, RTC strengthening and periscapular stabilization. He will see us back in [address] Arndt, sooner if needed. Orders: Orders PT Evaluation and Treatment Today M75.42 - Impingement syndrome of left shoulder, Z98.890 - Other specified postprocedural states Patient Instructions: Scribed for Tremaine Nix PA-C, by Uzair Arroyo medical educator, on 06/13/2023 at 9:30 AM EST. I, Tremaine Nix PA-C, have personally reviewed and agree with the information entered by the scribe. Coding Level of Care Code Global (91215) Diagnoses Impingement syndrome of left shoulder M75.42 History of arthroscopy of left shoulder Z98.890
== END 2023-06-13 10:12 | disposition home or self-care (01) ==
PROVIDERS: PCP Internal Medicine; Visit Provider Physician Assistant
DX: M75.42 Impingement syndrome of left shoulder (principal); Z98.890 Other specified postprocedural states
CPT/HCPCS: 99024

== ENCOUNTER → 2023-06-13 09:26 | Outpatient (BNVA) | payer OTHER, SELFPAY | PROVIDERS: PCP Internal Medicine; Visit Provider Physician Assistant ==

== ENCOUNTER 2023-07-18 09:43 | Outpatient (AMB) | payer OTHER, SELFPAY ==
--- NOTE | 2023-07-18 09:44 | A.OFFVIS_ITS ---
Intake Vital Signs 07/18/23 09:46 Height 5 ft 9 in Weight 225 lb BMI 33.2 Intake Visit Reasons: PO-Lt Shld 05/31/23 DR Intake Note: Altaf is a 58 year old male who presents for a post operative appointment s/p Left shoulder on 05/31/2023. Patient reports he is doing well with improved ROM and is going to physical therapy which is going well. He denies any fevers or chills. He would like to return to playing golf over the next few weeks. Allergies Penicillins [PENICILLINS] Allergy (Intermediate, Verified 07/18/23 09:50) RASH ciprofloxacin [From CIPRO] Adverse Reaction (Severe, Verified 07/18/23 09:50) GI PAIN/DIARRHEA Medication List - Last Reconciled 07/19/23 by Boo Arndt MD flu vacc [id number] 6mos up(PF) mL IM fluticasone propionate 50 mcg/actuation 1 spray intranasal BID hydrochlorothiazide 12.5 mg PO DAILY omeprazole 20 mg PO DAILY oxycodone 10 mg (2 x 5 mg) PO Q4H PRN pravastatin 20 mg PO DAILY valsartan 160 mg PO DAILY PFSH Medical History (Updated 05/16/23 @ 09:29 by Boo Arndt MD) Nephrolithiasis LUIS ANGEL on CPAP Esophageal reflux Diverticulitis Epidermal cyst Hyperlipidemia Hypertension Surgical History (Updated 07/18/23 @ 09:51 by Maria Dolores Ortiz CMA) History of shoulder surgery (05/31/23) Hx of esophagogastroduodenoscopy Hx of colonoscopy History of excision of epidermal inclusion cyst (~06/22/21) History of removal of cyst Family History Father Cardiovascular disease Social History Are you a primary ambulatory care nurse to a significant other at home: No Do you presently have visiting nurse or other home services: No Patient Tobacco Use Status: Never used Tobacco Current occupation: self employed, right hand dominant Physical Exam Vital Signs: BMI result Body Mass Index 33.2 Extrem Other: Left shoulder examination shows that the surgical incisions are well healed, no erythema, almost full range of motion when compared to his right shoulder, minimal discomfort with range of motion, 5/5 strength with supraspinatus testing Assessment & Plan Assessment & Plan (1) Left shoulder pain: Code(s): M25.512 - Pain in left shoulder Plan Mr. Matthews continues to do well after undergoing left shoulder arthroscopic surgery on 05/31/2023. He will continue with his physical therapy exercises. The do's and don'ts of lifting were discussed at length with the patient. He will contact me prior to his follow-up appointment in 2 months should any questions or concerns arise. Feel free to call me at any time should questions regarding his orthopedic management arise. Coding Level of Care Code Global (76298) Diagnoses Left shoulder pain M25.512
[2023-07-18 09:46] VITALS: BMI 33.2
== END 2023-07-18 10:14 | disposition home or self-care (01) ==
PROVIDERS: PCP Internal Medicine; Visit Provider Orthopaedic Surgery
DX: M25.512 Pain in left shoulder (principal)
CPT/HCPCS: 99024

== ENCOUNTER → 2023-07-18 09:43 | Outpatient (BNVA) | payer OTHER, SELFPAY | PROVIDERS: PCP Internal Medicine; Visit Provider Orthopaedic Surgery ==

== ENCOUNTER 2023-08-01 10:00 | Outpatient (RCR) | payer OTHER, SELFPAY ==
--- NOTE | 2023-06-21 11:00 | MHC.PT.EP ---
[facility] [place] [facility] [place] [facility] [place] Office [address] Rodrigo Mckinnon [address] [phone] F: [phone] F: [phone] F: [phone] F: [phone] Physical Therapy Plan of Care Date of Evaluation: 06/21/23 Date of Surgery: Diagnosis: This is a 58 year old male presents today with a script for impingement syndrome of L shoulder. Assessment: This is a 58 year old male presents today with a script for impingement syndrome of L shoulder. This patient is actually post operative left shoulder on 05/31/[address] Arndt. Per ortho note on 06/13/23 Sutures removed today, steri strips applied. He will begin a course of physical therapy to work on ROM, RTC strengthening and periscapular stabilization. He will see us back in [address] Arndt, sooner if needed. Per surgical notes procedure completed consisted mainly of anterior capsular release between the inferior border of the biceps tendon and the superior border of the subscapularis tendon. A distal clavicle excision of 8 mm was performed using the hooded bur. A gentle manipulation under anesthesia was then performed. Full passive range of motion was easily obtained. He arrives today reporting just a little stiffness throughout the superior and anterior GHJ and UT. He is still limited with sleeping on that side, lifting out to the side, reaching up and ADLs. He takes Advil occasionally for pain. Assessment reveals pain that ranges from up to a 6/10 at the worst. Patient demos decreased L shoulder ROM, strength of L shoulder, TTP at UT, ACJ, anterior and superior GHJ, impaired posture with forward head and rounded shoulders, and decreased functional tolerance for ADL's and higher level activities expected s/p . Based on functional limitations, impaired QOL and pain tolerance patient is a good candidate for skilled PT 2x/wk for 4wks. Frequency and Duration: The patient will be seen 2x/wk for 4wks Short Term Goals: (In 2 weeks) Demo I with HEP Improve shoulder AROM by at least 10 degs Demo proper scapular recruitment with appropriate shoulder strengthening exercises Dial Maker Goals: (in 4 wks) Improve shoulder nonpainful AROM to almost near equal B Demo at least 1 grade improvement in MMT for shoulder Improve SPADI by at least 10 points Improve overall functional QOL by at least 50% Treatment Plan: Modalities to reduce pain, spasms and effusion. Manual therapy to restore motion and function. Therapeutic exercise to improve strength and flexibility. Neuromuscular re-education for posture and balance. Therapeutic activities to return to functional activities of daily living. Electronically signed by: Olga Angeles PT Please sign and return to therapist. Thank you for your referral.
--- NOTE | 2023-07-17 08:04 | MHC.PT.PR ---
[facility] [place] [facility] [place] [facility] [place] [facility] [address] [phone] F: [phone] F: [phone] F: [phone] F: [phone] Physical Therapy Progress Note Diagnosis: This is a 58 year old male presents today with a script for impingement syndrome of L shoulder. Date of Surgery: 05/31/23 Date of Evaluation: 06/21/23 Treatments to Date: 4 Cancellations to Date: 0 No Shows to Date: 0 Subjective: Pt is doing well, occasionally has mild symptoms. Pain Score and Location: 0 L shoulder Objective Measures: 07/10: IR is now 65 as of 07/10, all active motions are WNL 07/04: 175 flexion, 180 abduction, 90 ER in 90, 45 IR in 90 Assessment: Patient is coming 1x/wk now. He demos WNL all AROM, good strength and pain has improved (0/10 at the last session). He is I in his HEP. He wanted a note to be sent to his orthopedic on his progress. He wants to continue PT for a few more weeks. He is progressing very well. PT Plan: Continue with PT Frequency and Duration: The patient will be seen 2x/wk for 4wks Treatment Plan: Therapeutic Exercise Dynamic Therapeutic Activities Neuromuscular Re-ed Manual Therapies Taping Home Exercise Program Patient Education Hot or Cold Pack Reviewed/ Agreed with Student Documentation: Therapist: Thank you once again for your referral.
--- NOTE | 2023-08-30 10:26 | MHC.PT.DC ---
[facility] [place] [facility] [place] Office [place] Office [address] Rodrigo Mckinnon [address] [phone] F: [phone] F: [phone] F: [phone] F: [phone] Physical Therapy Discharge Report Diagnosis: This is a 58 year old male presents today with a script for impingement syndrome of L shoulder. Date of Surgery: 05/31/23 Date of Evaluation: 06/21/23 Date of Discharge: 08/30/23 Treatments to Date: 7 Cancellations to Date: 0 No Shows to Date: 0 Discharge Status: Achieved Goals Improved Function Independent with HEP Discharge Summary: 07/31: Patient is I in his program, demos WNL ROM and strength. I updated his HEP for DC planning and educated him to call the office in the next 30 days if anything changes. Educated on ice and pain management as needed. DC to HEP. Electronically signed by: Olga Angeles PT Please sign and return to therapist. Thank you for your referral.
== END 2023-08-30 10:26 | disposition home or self-care (01) ==
LOC: HO.PTCHIC 10:00
PROVIDERS: PCP Internal Medicine; Visit Provider Physician Assistant
DX: M75.42 Impingement syndrome of left shoulder (principal)
CPT/HCPCS: 97110; 97162

== ENCOUNTER 2023-09-18 08:20 | Outpatient (AMB) | payer OTHER, SELFPAY ==
[2023-09-18 08:42] VITALS: BMI 33.2
--- NOTE | 2023-09-18 08:42 | MHC.OFFVIS ---
Vital Signs 09/18/23 08:42 Height 5 ft 9 in Weight 225 lb BMI 33.2 Intake Visit Reasons: ov- Lt Shld 05/31/23 DR Intake Note: Altaf is a 58 year old male who presents for his post operative appointment s/p Left shoulder on 05/31/2023. Patient reports he is al little sore but his ROM has much improved. He states is back to golfing and is able to sleep again with minimal discomfort. He aggravated his shoulder several weeks ago while mowing his lawn. He denies any weakness. He does not take any medicines for his discomfort. Allergies Penicillins [PENICILLINS] Allergy (Intermediate, Verified 09/18/23 08:44) RASH ciprofloxacin [From CIPRO] Adverse Reaction (Severe, Verified 09/18/23 08:44) GI PAIN/DIARRHEA Medication List - Last Reconciled 09/18/23 by Boo Arndt MD flu vacc [id number] 6mos up(PF) mL IM fluticasone propionate 50 mcg/actuation 1 spray intranasal BID hydrochlorothiazide 12.5 mg PO DAILY omeprazole 20 mg PO DAILY oxycodone 10 mg (2 x 5 mg) PO Q4H PRN pravastatin 20 mg PO DAILY valsartan 160 mg PO DAILY PFSH Medical History Nephrolithiasis LUIS ANGEL on CPAP Esophageal reflux Diverticulitis Epidermal cyst Hyperlipidemia Hypertension Surgical History History of shoulder surgery (05/31/23) Hx of esophagogastroduodenoscopy Hx of colonoscopy History of excision of epidermal inclusion cyst (~06/22/21) History of removal of cyst Family History Father Cardiovascular disease Social History Are you a primary residential care facility manager to a significant other at home: No Do you presently have visiting nurse or other home services: No Patient Tobacco Use Status: Never used Tobacco Current occupation: self employed, right hand dominant Physical Exam Vital Signs: BMI result Body Mass Index 33.2 Const Other: Well-nourished well-developed very friendly male awake alert and oriented x3 in no acute distress Extrem Other: Bilateral upper extremity examination shows good capillary refill, no skin lesions noted, normal sensation light touch Left shoulder examination shows full range of motion when compared to his right shoulder, minimal discomfort with range of motion, 5/5 strength with supraspinatus testing, no instability Assessment & Plan Assessment & Plan (1) Left shoulder pain: Code(s): M25.512 - Pain in left shoulder Category: Medical Plan Mr. Matthews continues to do very well after undergoing left shoulder arthroscopic surgery on 05/31/2023. He will continue with his range of motion exercises to prevent stiffness. The do's and don'ts of lifting were discussed at length with the patient. He will follow up with me on an as-needed basis should his symptoms worsen in any way. Feel free to call me at any time should questions regarding his orthopedic management arise. I spent 21 minutes in reviewing the patient's records and imaging studies, seeing the patient and documenting in the medical record. Coding Level of Care Code Est Pt Level 3 (54360) Diagnoses Left shoulder pain M25.512
== END 2023-09-18 09:01 | disposition home or self-care (01) ==
PROVIDERS: PCP Internal Medicine; Visit Provider Orthopaedic Surgery
DX: M25.512 Pain in left shoulder (principal)
CPT/HCPCS: 99213

== ENCOUNTER → 2023-09-18 08:20 | Outpatient (BNVA) | payer OTHER, SELFPAY | PROVIDERS: PCP Internal Medicine; Visit Provider Orthopaedic Surgery ==